=== PATIENT | male | born 1985 | race Caucasian/White ===

== ENCOUNTER 2019-01-12 10:59 | Day surgery (SDC) | payer OTHER ==
[2019-01-07 08:44] VITALS: BMI 21.5
[~2019-01-12 10:59] MED LIST: Dexamethasone 20 MG/5 ML VIAL ONE; Glycopyrrolate 0.2 MG/ML 5 ML SYRINGE ONE; Ketorolac Tromethamine 30 MG/ML VIAL ONE; Lidocaine 1% PF 5 ML VIAL ONE; Ondansetron PF 4 MG/2 ML Vial ONE; PROPOFOL 200 MG/20 ML VIAL ONE; Rocuronium Bromide 10 MG/ML (10ML VIAL) ONE; ePHEDrine/0.9% NaCl/PF SYRINGE 50 mg/10 ml ONE
[2019-01-12] MEDS ORDERED: Midazolam HCl 2 mg/2 ml Vial ONE (12:05)
[2019-01-12] MEDS ORDERED: Bupivacaine HCl 0.25%/Epi 0.0005/PF 10 ML VIAL FS ONE (12:18)
[2019-01-12] MEDS ORDERED: Fentanyl 100 MCG/2 ML VIAL ONE ×3 (12:19→14:59)
[2019-01-12] MEDS ORDERED: HYDROcodone/Acetaminophen 5/325 mg Tablet ONE (16:53)
--- NOTE | 2019-01-13 11:59 | OP ---
DATE OF PROCEDURE: 01/12/2019 PREOPERATIVE DIAGNOSIS: Bilateral inguinal hernia. POSTOPERATIVE DIAGNOSIS: Bilateral inguinal hernia. PROCEDURE PERFORMED: Da Lianne laparoscopic bilateral inguinal hernia repair with mesh, bilateral Bard 3DMax large. ANESTHESIA: General. ESTIMATED BLOOD LOSS: Minimal. COMPLICATIONS: None. SPECIMEN: None. FINDINGS: Bilateral inguinal hernia. DESCRIPTION OF PROCEDURE: The patient was taken to the operating room and laid supine on the operating room table. After general anesthetic was obtained, the Cordero was placed. The abdomen was shaved, prepped, and draped in a sterile fashion. A curved incision was made above the umbilicus, cautery dissected down to and score the fascia. Abdominal cavity was entered bluntly using a Sangeetha clamp. The 11 mm balloon trocar was placed and high-flow pneumoperitoneum was obtained. Left and right abdominal 8 mm robot trocars were placed. All ports were docked to the robot. There were bilateral inguinal hernias. Bilateral 3DMax large mesh was rolled and placed into the abdomen. The peritoneum was opened in the bilateral groin and the preperitoneal spaces were bluntly dissected on both sides all the way to pubic tubercle medially, anterior superior iliac crest laterally. The shelving edge of inguinal ligament was fully exposed bilateral. The bilateral indirect hernias were dissected back high up on to the peritoneum. The bilateral 3DMax large mesh was placed into the preperitoneal space with the M-labeled medial aspect placed over pubic tubercle medially. The mesh was then placed in the preperitoneal space to cover the indirect, direct, and femoral areas. The mesh was sewn via Vicryl suture to pubic tubercle medially, to the posterior fascia laterally. The peritoneum was reapproximated using 3-0 Stratafix. All needles were removed from the abdomen and accounted for. All port sites were infiltrated using local anesthetic. There was no injury to any intraabdominal structures. All ports were removed under direct visualization without injury. Pneumoperitoneum was let down. PDS was used to close the fascial defect above the umbilicus. All incisions were irrigated and closed using 4-0 Monocryl and Dermabond. The patient was sent to Recovery in stable condition. All instrument counts, needle counts, and lap counts were correct. Job ID: [id number]
== END 2019-01-12 17:50 | disposition home or self-care (01) ==
LOC: SDC 10:59
PROVIDERS: ATTEND Surgery
PROC: 0YUA4JZ Supplement Bilateral Inguinal Region with Synthetic Substitute, Percutaneous Endoscopic Approach (ICD-10-PCS; principal; 2019-01-12)
DX: K40.20 Bilateral inguinal hernia, without obstruction or gangrene, not specified as recurrent (principal); Z87.891 Personal history of nicotine dependence
CPT/HCPCS: C1781; J0131; J0690; J1100; J1885; J2001; J2250; J2405; J2704; J3010